=== PATIENT | female | born 1970 | race African-American/Black ===

== ENCOUNTER 2025-03-07 20:19 | Emergency (ER) | payer BC ==
[~2025-03-07] VITALS: Ht 162.6 cm; Wt 97.0 kg
[~2025-03-07 20:19] MED LIST: AMLO10TA80 PO; POLY17PO3 PO
[2025-03-07 20:41] VITALS: O2SAT 98
[2025-03-07 23:42] VITALS: TEMP 36.6
[2025-03-08] MEDS ORDERED: ACET-2708 MT (01:17)
[2025-03-08] MEDS ORDERED: IBUP-2030 MT (01:17)
[2025-03-08 01:39] VITALS: O2SAT 97
[2025-03-08 01:41] VITALS: BP 117/71; PULSE 67; RESP 18
[2025-03-08] MEDS: KETOROLAC 30MG/ML VIAL IM ONE (01:41)
== END 2025-03-08 01:55 | disposition home or self-care (01) ==
LOC: ER 20:19
DX: M25.562 Pain in left knee (principal); I10 Essential (primary) hypertension; M17.12 Unilateral primary osteoarthritis, left knee; Z90.710 Acquired absence of both cervix and uterus; Z90.49 Acquired absence of other specified parts of digestive tract; Z79.899 Other long term (current) drug therapy
CPT/HCPCS: 99283; 29505; 73562; 96372; J1885